=== PATIENT | female | born 1960 | race Two or more races ===

== ENCOUNTER → 2021-11-10 | Outpatient (CLI) | payer MEDICAID ==
[2021-11-10] VITALS (7 sets, daily range): BP systolic 98–126; BP diastolic 54–67
[~2021-11-10] VITALS: Ht 162.6 cm; Wt 65.8 kg
[~2021-11-10] MED LIST: REGENERON 1200mg/250ml NS 250 ML IV ONE
== END | disposition home or self-care (01) ==
LOC: ER 13:12
PROVIDERS: ATTEND Internal Medicine
DX: U07.1 COVID-19 (principal); E11.9 Type 2 diabetes mellitus without complications; I10 Essential (primary) hypertension; R05.9 Cough, unspecified; R53.83 Other fatigue; R51.9 Headache, unspecified
CPT/HCPCS: J7050; M0243; Q0244

== ENCOUNTER 2025-06-05 13:19 | Inpatient (IN) | payer OTHER ==
[~2025-06-05] VITALS: Ht 157.5 cm; Wt 67.9 kg
--- NOTE | 2025-06-05 13:31 | ED.PDOC ---
HPI Comments This is a 65 year old female JIMMY presenting to the ED with chief complaint of chest pain. Patient reports that she started to feel dizzy earlier yesterday, but soon developed associated left sided chest heaviness and left arm pain/numbness. Patient relays that she had similar chest pain 2 days ago. Patient notes she experience an episode of nausea/vomiting this morning. Patient denies any abdominal pain, SOB, fever, chills, or any further symptoms. Chief Complaint: Chest Pain Time Seen by MD: 13:29 Reviewed Notes: Nurses Notes, Slab Installer Notes, Medications, Allergies Allergies: Coded Allergies: Aspirin (Verified Allergy, Severe, 06/05/25) Sulfa Antibiotics (Verified Allergy, Unknown, 11/10/21) Information Source: Patient, Emergency Med Personnel Mode of Arrival: EMS Severity: Moderate Timing: Hours Duration: Since onset Prehospital treatment: None Location: Chest (L) Radiation: No Radiation Quality: Heavy Onset: At Rest Cardiac Risk Factors: Hyperlipidemia, HTN, Diabetes PE Risk Factors: None History of: Similar pain in past Past Medical History PAST MEDICAL HISTORY: Cancer, DM, High Lipids, HTN Surgical History (Other): Bilateral Mastectomy 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 Family History Family History: Reviewed,noncontributory to illness Social History Smoker: Non-Smoker Alcohol: Denies ETOH Use Drugs: Denies Drug Use Lives In: Home Constitutional: denies: chills, diaphoresis, fatigue, fever, malaise, sweats, weakness, others EENTM: denies: blurred vision, double vision, ear bleeding, ear discharge, ear drainage, ear pain, ear ringing, eye pain, eye redness, hearing loss, mouth pain, mouth swelling, nasal discharge, nose bleeding, nose congestion, nose pain, photophobia, tearing, throat pain, throat swelling, voice changes, others Respiratory: denies: cough, hemoptysis, orthopnea, SOB at rest, shortness of breath, SOB with excertion, stridor, wheezing, others Cardiovascular: reports: chest pain, left arm pain; denies: dizzy spells, diaphoresis, Dyspnea on exertion, edema, irregular heart beat, lightheadedness, palpitations, PND, syncope, others Gastrointestinal: reports: nausea, vomiting; denies: abdomen distended, abdominal pain, blood streaked bowels, constipated, diarrhea, dysphagia, difficulty swallowing, hematemesis, melena, poor appetite, poor fluid intake, rectal bleeding, rectal pain, others Genitourinary: denies: abnormal vagina bleeding, burning, dyspareunia, dysuria, flank pain, frequency, hematuria, incontinence, pain, , vagina discharge, urgency, others Neurological: reports: dizziness; denies: fainting, headache, left sided numbness, left sided weakness, numbness, paresthesia, pre-existing deficit, right sided numbness, right sided weakness, seizure, speech problems, tingling, tremors, weakness, others Musculoskeletal: denies: back pain, gout, joint pain, joint swelling, muscle pain, muscle stiffness, neck pain, others Integumetry: denies: bruises, change in color, change in hair/nails, dryness, laceration, lesions, lumps, rash, wounds, others Allergic/Immunocompromised: denies: Difficulty Healing, Frequent Infections, Hives, Itching, others Hematologic/Lymphatic: denies: anemia, blood clots, easy bleeding, easy bruising, swollen glands, others Endocrine: denies: excessive hunger, excessive sweating, excessive thirst, excessive urination, flushing, intolerance to cold, intolerance to heat, unexplained weight gain, unexplained weight loss, others Psychiatric: denies: anxiety, bipolar disorder, depression, hopeless, panic disorder, schizophrenia, sleepless, suicidal, others All Other Systems: Reviewed and Negative Physical Exam General Appearance: No Apparent Distress, Normal HEENT: Normal ENT Inspection, Pharynx Normal, TMs Normal Neck: Full Range of Motion, Non-Tender, Normal, Normal Inspection Respiratory: Chest Non-Tender, Lungs Clear, No Accessory Muscle Use, No Respiratory Distress, Normal Breath Sounds Cardiovascular: No Edema, No JVD, No Murmur, No Gallop, Normal Peripheral Pulses, Tachycardia Breast Exam: Deferred Gastrointestinal: No Organomegaly, Non Tender, No Pulsatile Mass, Normal Bowel Sounds, Soft Genitalia: Deferred Pelvic: Deferred Rectal: Deferred Extremities: No calf tenderness, Normal capillary refill, Normal inspection, Normal range of motion, Non-tender, No pedal edema Musculoskeletal : Apperance: Normal Neurologic: Alert, shoeblack II-XII nml as Tested, No Motor Deficits, Normal Affect, Normal Mood, No Sensory Deficits Cerebellar Function: Normal Reflexes: Normal Skin: Dry, Normal Color, Warm Lymphatic: No Adenopathy EKG EKG : Pulse Rate (adult): 91 [place]: Normal Cardiac Rhythm: NSR Block: None Hypertrophy: None ST: Nonsp Was a procedure done? Was a procedure done?: No CP Differential Dx Differential Diagnosis: N/A Differential Diagnosis: N/A Differential Diagnosis: Angina, Aortic dissection, Chest Wall Pain, Cholelithiasis, Costochondritis, Esophageal reflux/spasm, Gastritis, Myocardial Infarction, Pericarditis, Pneumonia, Pneumothorax, Pulmonary Embolus X-Ray, Labs, Meds, VS Vital Signs Date Time Temp Pulse Resp B/P (MAP) Pulse Ox O2 Delivery O2 Flow Rate FiO2 06/05/25 14:24 80 06/05/25 14:00 99.0 90 16 150/76 (100) 98 99.0 06/05/25 13:50 90 06/05/25 13:40 91 06/05/25 13:36 98.4 95 16 150/78 (102) 97 98.4 06/05/25 13:35 99.0 89 16 137/76 (96) 98 99.0 06/05/25 13:35 Room Air* 0 21 06/05/25 13:24 91 Lab Test 06/05/25 14:45 Range/Units White Blood Count 5.4 4.4-10.8 10^3/uL Red Blood Count 4.92 4.0-5.20 10^6/uL Hemoglobin 15.2 12.2-16.2 g/dL Hematocrit 44.6 36.0-46.0 % Mean Corpuscular Volume 90.8 80.0-100.0 fL Mean Corpuscular Hemoglobin 30.9 28.0-32.0 pg Mean Corpuscular Hemoglobin Concent 34.1 32.0-36.0 g/dL Red Cell Distribution Width 13.4 11.8-14.3 % Platelet Count 179 140-450 10^3/uL Mean Platelet Volume 8.6 6.9-10.8 fL Neutrophils (%) (Auto) 68.9 37.0-80.0 % Lymphocytes (%) (Auto) 24.9 10.0-50.0 % Monocytes (%) (Auto) 5.5 0.0-12.0 % Eosinophils (%) (Auto) 0.4 0.0-7.0 % Basophils (%) (Auto) 0.3 0.0-2.0 % Neutrophils # (Auto) 3.7 1.6-8.6 10 ^3/uL Lymphocytes # (Auto) 1.3 0.4-5.4 10 ^3/uL Monocytes # (Auto) 0.3 0-1.3 10 ^3/uL Eosinophils # (Auto) 0 0-0.8 10 ^3/uL Basophils # (Auto) 0 0-0.2 10 ^3/uL Nucleated Red Blood Cells 0.1 % Sodium Level 141 136-145 mmol/L Potassium Level 3.7 3.5-5.1 mmol/L Chloride Level 105 98-107 mmol/L Carbon Dioxide Level 24 20-31 mmol/L Anion Gap 12 5-15 Blood Urea Nitrogen 12 9-23 mg/dL Creatinine 0.71 0.550-1.02 mg/dL Glomerular Filtration Rate Calc 93 >90 mL/min BUN/Creatinine Ratio 16.9 10.0-20.0 Serum Glucose 111 H 74-106 mg/dL Calcium Level 11.6 H 8.7-10.4 mg/dL Troponin I High Sensitivity 5 </=34 ng/L Time of 1ST Reevaluation: 14:27 Reevaluation 1ST: Unchanged Time of 2ND Reevaluation: 15:24 Reevaluation 2ND: Improved Patient Education/Counseling: Diagnosis, Treatment, Prognosis, Need For Follow Up Family Education/Counseling: No Family Present Comments pt's symptoms were concerning for angina. she owens HEART score of 7, no PE risk factors, no pneumonia, lung mass,ptx. she will be admitted for further workups and treatments Additional Information Reviewed patient's previous visit(s): None The following tests were ordered, and results were reviewed by me: CBC, BMP, Troponin, EKG, Chest XR Additional information was gathered from interviewing the following independent historian: EMS I reviewed and agreed with the following test results read by other provider: Chest XR I discussed treatments and results with medical personnel and: Patient Comprehensive systems review obtained and negative except for what is stated in the HPI. SEPSIS Sepsis Screen Physician Orders Electrocardigram (06/05/25 13:40) Electrocardigram (06/05/25 14:40) Electrocardigram (06/05/25 16:40) Chest Portable (06/05/25 14:31) Troponin-I Hs (06/05/25 15:31) Troponin-I Hs (06/05/25 17:31) Vital Signs Date Time Temp Pulse Resp B/P (MAP) Pulse Ox O2 Delivery O2 Flow Rate FiO2 06/05/25 14:24 80 06/05/25 14:00 99.0 90 16 150/76 (100) 98 99.0 06/05/25 13:50 90 06/05/25 13:40 91 06/05/25 13:36 98.4 95 16 150/78 (102) 97 98.4 06/05/25 13:35 99.0 89 16 137/76 (96) 98 99.0 06/05/25 13:35 Room Air* 0 21 06/05/25 13:24 91 Laboratory Tests Test 06/05/25 14:45 White Blood Count 5.4 10^3/uL (4.4-10.8) Departure 1 Departure Time of Disposition: 15:26 Impression: Primary Impression: Unstable angina Disposition: ADMITTED INPATIENT Admit to: [facility] Condition: Serious Discharged With: Self Critical Care Note Critical Care Time?: Yes (45 min-critical care time only) Critical care comment: Due to concerns for patients condition deteriorating, the care required my highest level of attention and readiness to intervene. I assessed the patient, reviewed the medical records, ordered the appropriate tests and treatments, then reassessed for results and responsiveness. I communicated with medical personnel and consultants and formulated a plan of care. Total critical care time excludes any procedures Stability Stability form required: No Heart Score Heart Score: Heart Score Response (Comments) Value History Highly Suspicious 2 EKG Repolarization Disturb 1 Age >65 2 Risk Factors >3 or Hx ASHD 2 Troponin Normal limit 0 Total 7 I personally scribed for SHERRIE EDGAR MD ([email or web address]) on 06/05/25 at 13:31. Elec tronically submitted by Jack Cardoza ([email or web address]). I personally scribed for SHERRIE EDGAR MD ([email or web address]) on 06/05/25 at 13:40. Electr onically submitted by Jack Cardoza ([email or web address]). SHERRIE EDGAR MD Jun 05, 2025 13:31
[2025-06-05 14:56] LABS: Hematocrit 44.6 % (36.0-46.0); Hemoglobin 15.2 g/dL (12.2-16.2); Mean Corpuscular Hemoglobin 30.9 pg (28.0-32.0); Mean Corpuscular Volume 90.8 fL (80.0-100.0); Nucleated Red Blood Cells % 0.1 %
[2025-06-05 15:08] LABS: Chloride 105 mmol/L (98-107); Potassium 3.7 mmol/L (3.5-5.1); Sodium 141 mmol/L (136-145)
[2025-06-05 15:09] LABS: Anion Gap 12 (5-15); Carbon Dioxide 24 mmol/L (20-31)
--- NOTE | 2025-06-05 15:09 | DVH ---
CHEST RADIOGRAPH Indication: cp Technique: Single frontal view of the chest was obtained COMPARISON: None FINDINGS: Lines and Tubes: None Lungs: Clear Pleura: No effusion. No pneumothorax. Cardiomediastinal contours: Unremarkable Bones: Unremarkable IMPRESSION: 1. No acute disease.
[2025-06-05 15:10] LABS: Calcium 11.6 mg/dL (8.7-10.4)
[2025-06-05 15:14] LABS: BUN/Creatinine Ratio 16.9 (10.0-20.0); Blood Urea Nitrogen 12 mg/dL (9-23)
[2025-06-05 15:18] LABS: Glucose 111 mg/dL (74-106)
[2025-06-05] MEDS ORDERED: NITROGLYCERIN 0.4 MG SL TAB SL PRN (17:30)
[2025-06-05] MEDS ORDERED: ONDANSETRON HCL 4 MG/2 ML VIAL IV PRN (17:30)
[2025-06-05] MEDS ORDERED: DOCUSATE SOD 100 MG CAP PO PRN (17:30)
[2025-06-05] MEDS ORDERED: MORPHINE SULFATE INJ 2 MG/ml SYRG IV PRN ×2 (17:30)
--- NOTE | 2025-06-05 18:54 | ECG ---
[facility] Test Date: 2025-06-05 Test Time: 13:24:02 Pat Name: RENEE RANDOLPH Department: ED Room: 0240T Gender: F Sales And Service Consultant: breanna : 1960 Requested By: SHERRIE EDGAR Order Number: [id number] Reading MD: Measurements Intervals [place] Rate: 91 P: 40 TX: 149 QRS: -41 QRSD: 119 T: 11 QT: 374 QTc: 461 Interpretive Statements Sinus rhythm Incomplete RBBB and LAFB Low voltage, precordial leads ST elevation, consider inferior injury Please click the below link to view image of tracing.
[2025-06-05 18:56] VITALS: BP 111/68; PULSE 82; RESP 17; TEMP 98.8; O2SAT 96
[2025-06-05 20:00] VITALS: PULSE 78; PULSE 80; RESP 18; O2SAT 96
[2025-06-05] MEDS ORDERED: hydrALAZINE HCL 20 MG/ML VL IV PRN (20:15)
[2025-06-05 21:00] VITALS: BP 118/74; PULSE 78; RESP 18; TEMP 99.4; O2SAT 96
[2025-06-05] MEDS: SODIUM CHLORIDE 0.9% 1,000 ML IV SCH (21:09)
[2025-06-05] MEDS ORDERED: ATOR10TA52 PO (21:18)
[2025-06-05] MEDS ORDERED: ENAL1TAB47 PO (21:18)
[2025-06-05] MEDS ORDERED: METF-370 PO (21:18)
[2025-06-05] MEDS: ACETAMINOPHEN 325 MG TAB PO PRN (23:19)
[2025-06-06] VITALS (9 sets, daily range): BP systolic 113–148; BP diastolic 70–81; PULSE 64–80; RESP 17–77; TEMP 98.2–98.6; O2SAT 96–99
[2025-06-06] MEDS ORDERED: DEXTROSE (50%) 50ML SYRG IV PRN (01:00)
--- NOTE | 2025-06-06 01:06 | DVHHP2 ---
MIN LEMA MENTAL HYGIENIST 06/06/25 0106: History of Present Illness Reason for Visit: Chest pain / dizziness History of Present Illness 65-year-old female with past medical history of hypertension, hyperlipidemia, DM presents with complaints of intermittent chest pressure over the previous week. On missing occurrence patient also endorses dizziness and radiating numbness to the left arm. Patient did not report any aggravating factors. During the emergency department evaluation CBC is unremarkable CMP is unremarkable, troponin flat trending . CXR no acute cardiopulmonary disease. At this time patient denies fevers, chills, shortness of breath, palpitations, nausea, vomiting, leg edema. Cardiovascular: HTN, hyperipidemia Endocrine: Diabetes Smoke: No ALCOHOL: none Drugs: None Lives: with Family Review of Systems Constitutional: No: Fever, Chills, Sweats, Weakness, Malaise, Other Eyes: No: Pain, Vision change, Conjunctivae inflammation, Eyelid inflammation, Other, Redness ENT: No: Ear pain, Ear discharge, Nose pain, Nose discharge, Nose congestion, Mouth pain, Mouth swelling, Throat pain, Throat swelling, Other Respiratory: No: Cough, Dry, Shortness of breath, SOB with excertion, Wheezing, Hemoptysis, Pleuritic Pain, Sputum, Wheezing, Other Cardiovascular: Chest Pain, Lt Headedness; No: Palpitations, Orthopnea, Paroxysmal Noc. Dyspnea, Edema, Other Gastrointestinal: No: Nausea, Vomiting, Abdominal Pain, Diarrhea, Constipation, Melena, Hematochezia, Other Genitourinary: No Dysuria, No Frequency, No Incontinence, No Hematuria, No Retention, No Other Musculoskeletal: No: other, neck pain, shoulder pain, arm pain, back pain, hand pain, leg pain, foot pain Skin: No: Rash, Lesions, Jaundice, Bruising, Other Neurological: No: Weakness, Numbness, Incoordination, Change in speech, Confusion, Seizures, Other Allergies: Coded Allergies: Sulfa Antibiotics (Verified Allergy, Unknown, 11/10/21) Medications Current Medications Medications Dose Ordered Sig/Jose Francisco Route Start Time Stop Time Status Last Admin Dose Admin Sodium Chloride 1,000 ml @ 60 mls/hr [id number] IV 06/05/25 17:30 06/05/25 21:09 60 MLS/HR Acetaminophen/ Hydrocodone Bitart 1 tab Q4HP PRN PO 06/05/25 17:30 Ondansetron HCl 4 mg Q4HP PRN IV 06/05/25 17:30 Docusate Sodium 100 mg BIDPRN PRN PO 06/05/25 17:30 Enoxaparin Sodium 40 mg DAILY SC 06/06/25 10:00 Acetaminophen 650 mg Q6HP PRN PO 06/05/25 17:30 06/05/25 23:19 650 MG Morphine Sulfate 2 mg Q4HPRN PRN IV 06/05/25 17:30 Nitroglycerin 0.4 mg Q5MINP PRN SL 06/05/25 17:30 Morphine Sulfate 2 mg Q30M PRN IV 06/05/25 17:30 Hydralazine HCl 10 mg Q6HP PRN IV 06/05/25 20:15 Exam Vital Signs Vital Signs Date Time Temp Pulse Resp B/P (MAP) Pulse Ox O2 Delivery O2 Flow Rate FiO2 06/05/25 21:00 99.4 78 18 118/74 (89) 96 99.4 06/05/25 20:00 Room Air* 0 21 General Appearance: Alert, Oriented X3, Cooperative, No acute distress HEENT: Atraumatic, PERRLA, EOMI Respiratory: Clear to auscultation, Normal air movement Cardiovascular: Regular rate, Normal S1, Normal S2 Abdominal: Normal bowel sounds, Soft, No tenderness Extremities: No clubbing, No edema Skin: No rashes, No breakdown Neuro: Normal speech, Strength at 5/5 X4 ext Psych/Mental Status: Mental status NL, Mood NL Labs/Xrays Labs Test 06/05/25 17:34 06/05/25 16:37 06/05/25 14:45 Range/Units Troponin I High Sensitivity 5 </=34 ng/L POC Glucose 133 H 70-106 mg/dl White Blood Count 5.4 4.4-10.8 10^3/uL Red Blood Count 4.92 4.0-5.20 10^6/uL Hemoglobin 15.2 12.2-16.2 g/dL Hematocrit 44.6 36.0-46.0 % Mean Corpuscular Volume 90.8 80.0-100.0 fL Mean Corpuscular Hemoglobin 30.9 28.0-32.0 pg Mean Corpuscular Hemoglobin Concent 34.1 32.0-36.0 g/dL Red Cell Distribution Width 13.4 11.8-14.3 % Platelet Count 179 140-450 10^3/uL Mean Platelet Volume 8.6 6.9-10.8 fL Neutrophils (%) (Auto) 68.9 37.0-80.0 % Lymphocytes (%) (Auto) 24.9 10.0-50.0 % Monocytes (%) (Auto) 5.5 0.0-12.0 % Eosinophils (%) (Auto) 0.4 0.0-7.0 % Basophils (%) (Auto) 0.3 0.0-2.0 % Neutrophils # (Auto) 3.7 1.6-8.6 10 ^3/uL Lymphocytes # (Auto) 1.3 0.4-5.4 10 ^3/uL Monocytes # (Auto) 0.3 0-1.3 10 ^3/uL Eosinophils # (Auto) 0 0-0.8 10 ^3/uL Basophils # (Auto) 0 0-0.2 10 ^3/uL Nucleated Red Blood Cells 0.1 % Sodium Level 141 136-145 mmol/L Potassium Level 3.7 3.5-5.1 mmol/L Chloride Level 105 98-107 mmol/L Carbon Dioxide Level 24 20-31 mmol/L Anion Gap 12 5-15 Blood Urea Nitrogen 12 9-23 mg/dL Creatinine 0.71 0.550-1.02 mg/dL Glomerular Filtration Rate Calc 93 >90 mL/min BUN/Creatinine Ratio 16.9 10.0-20.0 Serum Glucose 111 H 74-106 mg/dL Calcium Level 11.6 H 8.7-10.4 mg/dL Assessment/Plan Assessment/Plan Chest pain Dizziness Uncontrolled hypertension DM Plan Admit telemetry Consult Cardiology. Echocardiogram. Continue home medications. As needed antihypertensives for optimal BP management. Monitor electrolytes. IVF Blood glucose checks with regular insulin sliding scale coverage for optimal glycemic management Physical therapy evaluation DVT PPX Lovenox Plan discussed with: Patient My Orders Orders - MIN LEMA NP Procedure Category Date Status Time Hydralazine Injection PHA 06/05/25 In Process (Apresoline Inject 20:15 Date of Service: Jun 06, 2025 Billing Provider: VANE CÁRDENAS MD Common Visit Codes: NOT BILLABLE VANE CÁRDENAS MD 06/06/25 1704: Review of Systems Allergies: Coded Allergies: Sulfa Antibiotics (Verified Allergy, Unknown, 11/10/21) Additional Comments Additional Comments Additional Comments 65-year-old female with a known history of diabetes type 2, hypertension, dyslipidemia initially presented to hospital with chest pain and headache found to have 1. Chest pain rule out acute NH 2. Diabetes mellitus type 2 3. Hypertension 4. Dyslipidemia -2D echo, cardiology consultation, patient is currently scheduled for Cardiolite stress test in the morning. MIN LEMA NP Jun 06, 2025 01:06 VANE CÁRDENAS MD Jun 06, 2025 17:04
[2025-06-06] MEDS: ACCU-CHEK COMFORT CURVE STRIP VI SCH (06:29)
[2025-06-06] MEDS: InsuLIN REG 1unit/0.01ml Soln (100units/ml) SC SCH (06:29)
--- NOTE | 2025-06-06 09:47 | DVHINCON2 ---
Date Seen: Jun 06, 2025 Referring Physician MD Arash Reason for Consultation Stable angina History of Present Illness This is a 65-year-old female patient who presents to the emergency room with chief complaint of chest pain and dizziness. The patient states that she has been experiencing intermittent chest pain for the last five months. She reports dizziness on the day of emergency room arrival, which prompted her to come to the emergency room. The patient describes the chest pain as unprovoked, intermittent, sharp in nature, left-sided and nonradiating. Associated symptoms include shortness of breath. She also complains of headache and dizziness. Initial twelve lead electrocardiogram reveals normal sinus rhythm with incomplete right bundle branch block. Serial troponin levels have been negative. Significant past medical history includes hypertension, dyslipidemia, type 2 diabetes mellitus, and breast cancer status post bilateral mastectomy. The patient reports seeing a volleyball referee for a preop evaluation prior to mastectomy and breast augmentation approximately five years ago. She is unsure of what kind of workup was done at that time. Past Medical History Past medical history reviewed. No other significant than mentioned above. Past Surgical History Bilateral breast augmentation Family History: Patient reports no known family medical history. Family History Family history reviewed. Social History Denies the use of tobacco, alcohol or illicit drugs. Allergies: Coded Allergies: Sulfa Antibiotics (Verified Allergy, Unknown, 11/10/21) Home Meds Reported Medications Atorvastatin Calcium (ATORVASTATIN CALCIUM) 10 Mg Tab, 1 TAB PO DAILY 06/05/25 Enalapril Maleate (Enalapril Maleate) 10 Mg Tab, 1 TAB PO DAILY 06/05/25 Metformin Hydrochloride (Metformin Hcl) 500 Mg Tab, 1 TAB PO BID 06/05/25 Home Meds Home medications reviewed. Current Medications Current Medications Medications (Trade) Dose Ordered Sig/Jose Francisco Route PRN Reason Start Time Stop Time Status Last Admin Sodium Chloride 1,000 ml @ 60 mls/hr [id number] IV 06/05/25 17:30 06/05/25 21:09 Acetaminophen/ Hydrocodone Bitart (Felicity 5/325MG Tab) 1 tab Q4HP PRN PO MODERATE PAIN (4-6 PAIN SCALE) 06/05/25 17:30 Ondansetron HCl (Zofran) 4 mg Q4HP PRN IV NAUSEA / VOMITING 06/05/25 17:30 Docusate Sodium (Colace Capsule) 100 mg BIDPRN PRN PO FOR CONSTIPATION 06/05/25 17:30 Enoxaparin Sodium (Lovenox) 40 mg DAILY SC 06/06/25 10:00 Acetaminophen (Tylenol Tablet) 650 mg Q6HP PRN PO PAIN SCALE 1-3 OR TEMP>100.4 06/05/25 17:30 06/06/25 09:01 Morphine Sulfate 2 mg Q4HPRN PRN IV SEVERE PAIN (7-10 PAIN SCALE) 06/05/25 17:30 Nitroglycerin (Ntrostat Sublingual) 0.4 mg Q5MINP PRN SL FOR CHEST PAIN 06/05/25 17:30 Morphine Sulfate 2 mg Q30M PRN IV FOR CHEST PAIN 06/05/25 17:30 Hydralazine HCl (Apresoline Injection) 10 mg Q6HP PRN IV SBP>160 06/05/25 20:15 Diagnostic Test (Pha) (Accu-Chek Comfort Curve T) 1 strip ACHS 06/06/25 07:00 06/06/25 06:29 Insulin Human Regular (InsuLIN R) ACHS SC 06/06/25 07:00 Dextrose 50 ml UD PRN IV Blood Sugar LESS THAN 60 06/06/25 01:00 Review of Systems Constitutional: No symptom reported Ears, Nose, & Throat: No symptom reported Eyes: No symptom reported Neurological: Dizziness, headache Pulmonary/Respiratory: Shortness of breath Cardiovascular: Chest pain Gastrointestinal: No symptom reported Genitourinary: No symptom reported Musculoskeletal: No symptom reported Skin: No symptom reported Psychiatric: No symptom reported Endocrine: No symptom reported Hematologic/Lymphatic: No symptom reported Vital Signs Vital Signs Date Time Temp Pulse Resp B/P (MAP) Pulse Ox O2 Delivery O2 Flow Rate FiO2 06/06/25 08:43 98.2 68 17 136/76 (96) 98 98.2 06/05/25 20:00 Room Air* 0 21 Physical Exam General Appearance: Cooperative. Well-developed. Well-nourished. No acute distress. Pulmonary/Respiratory: Clear, bilateral breaths sounds. Cardiovascular/Chest: Regular rate and rhythm. Peripheral Pulses: 2+ Radial (R). 2+ Radial (L). 2+ Pedal (R). 2+ Pedal (L) Abdominal Exam: Normal bowel sounds. Ankle Exam: Negative ankle edema Lower extremities: Negative lower extremity edema Neuro/Mental Status: A/OX4, coherent. Thoughts/Psych: Normal thought pattern. Appropriate mood and affect. Good judgment and insight. Appearance: No acute distress. Skin Exam: Normal inspection. Normal color. Warm and dry. Labs/Diagnostic Data Labs Test 06/06/25 05:59 06/05/25 17:34 06/05/25 14:45 Range/Units POC Glucose 129 H 70-106 mg/dl Troponin I High Sensitivity 5 </=34 ng/L White Blood Count 5.4 4.4-10.8 10^3/uL Red Blood Count 4.92 4.0-5.20 10^6/uL Hemoglobin 15.2 12.2-16.2 g/dL Hematocrit 44.6 36.0-46.0 % Mean Corpuscular Volume 90.8 80.0-100.0 fL Mean Corpuscular Hemoglobin 30.9 28.0-32.0 pg Mean Corpuscular Hemoglobin Concent 34.1 32.0-36.0 g/dL Red Cell Distribution Width 13.4 11.8-14.3 % Platelet Count 179 140-450 10^3/uL Mean Platelet Volume 8.6 6.9-10.8 fL Neutrophils (%) (Auto) 68.9 37.0-80.0 % Lymphocytes (%) (Auto) 24.9 10.0-50.0 % Monocytes (%) (Auto) 5.5 0.0-12.0 % Eosinophils (%) (Auto) 0.4 0.0-7.0 % Basophils (%) (Auto) 0.3 0.0-2.0 % Neutrophils # (Auto) 3.7 1.6-8.6 10 ^3/uL Lymphocytes # (Auto) 1.3 0.4-5.4 10 ^3/uL Monocytes # (Auto) 0.3 0-1.3 10 ^3/uL Eosinophils # (Auto) 0 0-0.8 10 ^3/uL Basophils # (Auto) 0 0-0.2 10 ^3/uL Nucleated Red Blood Cells 0.1 % Sodium Level 141 136-145 mmol/L Potassium Level 3.7 3.5-5.1 mmol/L Chloride Level 105 98-107 mmol/L Carbon Dioxide Level 24 20-31 mmol/L Anion Gap 12 5-15 Blood Urea Nitrogen 12 9-23 mg/dL Creatinine 0.71 0.550-1.02 mg/dL Glomerular Filtration Rate Calc 93 >90 mL/min BUN/Creatinine Ratio 16.9 10.0-20.0 Serum Glucose 111 H 74-106 mg/dL Calcium Level 11.6 H 8.7-10.4 mg/dL Assessment Chest pain, rule out coronary ischemia Rule out structural heart disease Hypertension Dyslipidemia History breast cancer status post bilateral mastectomy Plan/Recommendation We will continue with the following plan/recommendations (Dr. Brenner): * Transthoracic echocardiogram to evaluate cardiac function * Chest pain protocol * HEART score: 5 points (moderate score) * Single antiplatelet therapy lipid-lowering agent * Blood pressure control * Close Cardiac surveillance * Nuclear stress test Patient seen and examined at bedside with Dr. Brenner. Thank you for allowing us to care for this patient. Please call with any questions or concerns. Critical care time spent: 44 minutes This medical document was created using an electronic medical record system with voice recognition software and computerized dictation system. Although this document has been carefully reviewed, there might still be some phonetic and typographical errors. Occasional wrong-word or ``sound-alike substitutions may have occurred due to the inherent limitations of voice recognition software. These areas are purely typographical due to imperfections of the software programs and do not reflect any compromise in the patient's medical care. Please read the chart carefully and recognize, using context, where these substitutions have occurred. Plan discussed with: Patient NYHA Physical activity limitations: NA Date of Service: Jun 06, 2025 Billing Provider: JESUS ALBERTO MANUEL Cardiology Common Codes: 90163-DXMRQPY INP/OBS CARE (High) Cardiology Consultation Codes: 54356-[id number] CONSULT <45MIN JESUS ALBERTO MANUEL Jun 06, 2025 09:47
[2025-06-06] MEDS: ENOXAPARIN SOD 40 MG/0.4 ML SYRINGE SC SCH (10:17)
[2025-06-06] MEDS: LISINOPRIL 5 MG TAB PO SCH (10:34)
[2025-06-06 10:58] LABS: Magnesium 1.9 mg/dL (1.6-2.6); Triglycerides 102.0 mg/dL (< 150)
[2025-06-06 11:00] LABS: Cholesterol 129.0 mg/dL (< 200)
[2025-06-06 11:03] LABS: HDL Cholesterol 35.0 mg/dL (40-59)
--- NOTE | 2025-06-06 16:04 | DVHSR ---
APPROVED REPORT EXAM: LIMITED Two-dimensional and M-mode echocardiogram with Doppler and color Doppler. Blood Pressure: 136/76 mmHg INDICATION Chest Pain R/O OH RISK FACTORS Height: 5' 2", Weight: 149 DIMENSIONS LVDd4.0 (3.8-5.7cm)LA (2D)3.4 (1.9-4.0cm)Aortic Root2.7 (2.0-3.7cm) LVDs2.2 (2.5-4.0cm)LA (MM) (1.9-4.0cm)Aortic Cusp Exc1.8 (1.5-2.0cm) EF (%) 75.0 (55-70%)Rt. Atrium4.0 (1.9-4.0cm)Asc. Aorta cm IVSd1.1 (0.7-1.1cm)RV (D) (1.8-2.4cm) PWd1.0 (0.7-1.1cm) Mitral Valve MitralMitral Stenosis E wave0.90m/sMV Mean GR.mmHg A wave0.80m/sMV Peak GR.mmHg E/A ratio1.12D MVAcm2 Aortic Valve Aortic ValveAortic Stenosis V11.20m/Osman Mean GR.4mmHg V21.30m/Osman Peak GR.6mmHg LVOT Diameter2.1 (1.8-2.4cm)Doppler AVA3.20cm2 Pulmonic Valve V20.80m/s Other Information Quality : Technically LimitedRhythm : Technically limited study due to body habitus, patient with double mastectomy and implants. Conclusion lvef 75% mild LVH normal rv function no severe valve abnormalities noted
[2025-06-06] MEDS: ATORVASTATIN 20 MG TAB PO SCH (21:22)
[2025-06-07] VITALS (10 sets, daily range): BP systolic 126–155; BP diastolic 58–84; PULSE 63–100; RESP 16–20; TEMP 97.9–100.1; O2SAT 95–98
[2025-06-07] MEDS: REGADENOSON 0.4 MG/5 ML SYRG IV ONE ×2 (12:55→13:05)
--- NOTE | 2025-06-07 16:24 | DVHDS2 ---
Discharge Summary Date of Admission Jun 05, 2025 at 17:18 Date of Discharge: Jun 07, 2025 Labs/Diagnostic Data: Laboratory Results Test 06/07/25 11:28 06/06/25 10:35 06/06/25 10:32 06/05/25 17:34 POC Glucose 123 mg/dl (70-106) Hemoglobin A1c 6.0 % A1C (<5.7) Magnesium Level 1.9 mg/dL (1.6-2.6) Triglycerides Level 102 mg/dL (< 150) Cholesterol Level 129 mg/dL (< 200) LDL Cholesterol 78 mg/dL (< 100) HDL Cholesterol 35 mg/dL (40-59) Thyroid Stimulating Hormone (TSH) 1.09 uIU/mL (0.55-4.78) Troponin I High Sensitivity 5 ng/L (</=34) Test 06/05/25 14:45 White Blood Count 5.4 10^3/uL (4.4-10.8) Red Blood Count 4.92 10^6/uL (4.0-5.20) Hemoglobin 15.2 g/dL (12.2-16.2) Hematocrit 44.6 % (36.0-46.0) Mean Corpuscular Volume 90.8 fL (80.0-100.0) Mean Corpuscular Hemoglobin 30.9 pg (28.0-32.0) Mean Corpuscular Hemoglobin Concent 34.1 g/dL (32.0-36.0) Red Cell Distribution Width 13.4 % (11.8-14.3) Platelet Count 179 10^3/uL (140-450) Mean Platelet Volume 8.6 fL (6.9-10.8) Neutrophils (%) (Auto) 68.9 % (37.0-80.0) Lymphocytes (%) (Auto) 24.9 % (10.0-50.0) Monocytes (%) (Auto) 5.5 % (0.0-12.0) Eosinophils (%) (Auto) 0.4 % (0.0-7.0) Basophils (%) (Auto) 0.3 % (0.0-2.0) Neutrophils # (Auto) 3.7 10 ^3/uL (1.6-8.6) Lymphocytes # (Auto) 1.3 10 ^3/uL (0.4-5.4) Monocytes # (Auto) 0.3 10 ^3/uL (0-1.3) Eosinophils # (Auto) 0 10 ^3/uL (0-0.8) Basophils # (Auto) 0 10 ^3/uL (0-0.2) Nucleated Red Blood Cells 0.1 % Sodium Level 141 mmol/L (136-145) Potassium Level 3.7 mmol/L (3.5-5.1) Chloride Level 105 mmol/L (98-107) Carbon Dioxide Level 24 mmol/L (20-31) Anion Gap 12 (5-15) Blood Urea Nitrogen 12 mg/dL (9-23) Creatinine 0.71 mg/dL (0.550-1.02) Glomerular Filtration Rate Calc 93 mL/min (>90) BUN/Creatinine Ratio 16.9 (10.0-20.0) Serum Glucose 111 mg/dL (74-106) Calcium Level 11.6 mg/dL (8.7-10.4) Other Laboratory Tests 06/05/25 14:45 Brief Hx & Hospital Course: 65-year-old female with a known history of diabetes type 2, hypertension, dyslipidemia initially presented to hospital with chest pain and headache , eventually admitted to rule out acute MO. Patient underwent Cardiolite stress test which was negative for ischemia patient's daughter requested to CT head noncontrast as patient had a fall in the past not lately. CT head was done which shows left frontal bleed which was 2.1 cm. Current side neurology was consulted who recommended Neurosurgery evaluation at higher level of care as [facility] does not have any neurosurgery department. This was discussed in detail with the patient and patient's daughter at bedside who agree to the current plan of care. In the meantime MRI brain with and without contrast was done which shows evidence of cavernous malformation with the internal bleed most likely but less likely intraparenchymal hemorrhage with underlying mass. This these findings were explained with the patient and patient's daughter in detail in the presence of nurse Huff. [facility] has accepted the patient patient's daughter was requesting [facility] currently be prefer to transfer to [facility] only facility has a bed for now. Patient's daughter and patient agrees to current plan of care. No aspirin or any anticoagulation for now. Condition at Discharge: Higher Level of Care Final Diagnosis/Problems List 65-year-old female with a known history of diabetes type 2, hypertension, dyslipidemia initially presented to hospital with chest pain and headache found to have 1. Chest pain rule out acute MO 2. Diabetes mellitus type 2 3. Hypertension 4. Dyslipidemia Discharge Disposition: Acute Care Facility SNF Discharge Will this Physician continue t: No Discharge Instruct/Medications Diet: Cardiac 2g Na,low cholest Diet comment: 1800 ADA diet. Activity: No Restrictions, As Tolerated Follow Up/Referral: Plan with the PCP in 1-2 weeks Follow up with Neurology in 1-2 weeks per chronic dizziness as an outpatient. Medications: Resume home medications. Scheduled Atorvastatin Calcium (Atorvastatin Calcium), 1 TAB PO DAILY, (Reported) Enalapril Maleate (Enalapril Maleate), 1 TAB PO DAILY, (Reported) Metformin Hydrochloride (Metformin Hcl), 1 TAB PO BID, (Reported) Discharge Statement: "Patient was advised to return to the ER or call 911 if any headaches, dizziness, shortness of breath, chest pain, abdominal pain, bleeding, fevers, or worsening of medical condition. Patient was counseled about treatment plan, medications, possible side effects, patientverbalized understanding. All questions were answered to the best of my ability. This discharge took greater then 30 minutes in planning, reviewing documentation, counseling the patient, and discussing with other team members." ASSESSMENT ASSESSMENT Assessment 65-year-old female with a known history of diabetes type 2, hypertension, dyslipidemia initially presented to hospital with chest pain and headache found to have 1. Chest pain rule out acute MO 2. Diabetes mellitus type 2 3. Hypertension 4. Dyslipidemia Date of Service: Jun 07, 2025 Billing Provider: VANE CÁRDENAS MD Common Visit Codes: NOT BILLABLE VANE CÁRDENAS MD Jun 07, 2025 16:24
--- NOTE | 2025-06-07 17:11 | DVH ---
CT HEAD WITHOUT CONTRAST Indication: dizziness, history of previous fall EXAM DATE: 06/07/2025 04:26 PM COMPARISON: None TECHNIQUE: CT of the head without intravenous contrast. RADIATION DOSE: CTDIvol: 51.4 mGy, DLP: 824 mGy*cm FINDINGS: There is left frontal hemorrhagic region/ lesion measuring 2.1 by 1.6 cm. The ventricles are midline and normal in size. No midline shift. Mild periventricular and subcortical white matter chronic microvascular ischemic changes. Mastoids well pneumatized. Paranasal sinuses w ell pneumatized. Orbits and retrobulbar spaces unremarkable. IMPRESSION: A 2.1 cm region of hemorrhage within the left frontal lobe which could represent a hemorrhagic mass v ersus intraparenchymal hemorrhage. Recommend MRI brain with and without contrast to further evaluate . Mild chronic microvascular ischemic changes. Critical findings discussed with Dr Antoine by Dr. Vann via phone on 06/07/2025 05:09 PM.
[2025-06-07] MEDS ORDERED: GADOTERATE MEG 7.5 MMOL/15ml INJ (0.5MMOL/ml) IV ONE (17:41)
--- NOTE | 2025-06-07 19:17 | DVH ---
EXAM: MRI BRAIN HEAD WO CONTRAST CLINICAL HISTORY: Left frontal lobe hemorrhage COMPARISON: None CONTRAST: Type of contrast: Contrast injected: Contrast wasted: 0 TECHNIQUE: Multiplanar, multisequence magnetic resonance imaging of the brain was performed after the administra tion of intravenous contrast. FINDINGS: 1.4 x 1.6 1.5 cm x T1 heterogeneously hyperintense with medial wall hypointensity lesion within the l eft frontal lobe which demonstrates T2 internal hyperintensity with peripheral irregular hypointensit y , blooming on the blood sensitive sequence and no significant enhancement on the postcontrast imagi ng. There is no associated perilesional edema. Mild diffuse brain atrophy. No significant chronic small-vessel ischemic changes. No midline shift, herniation or cytotoxic edema following large vascular territory. No intra-axial or extra-axial fluid collections. No evidence of hydrocephalus. The basal cisterns are patent. Vascula r flow voids are maintained. The pituitary gland, sella and parasellar regions unremarkable. The cerebellar tonsils are in normal position. The cerebellum is unremarkable. The orbits and globes unremarkable. Mild mucoperiosteal thickening of the ethmoid air cells. Otherwi se, the paranasal sinuses and mastoids are clear. There are No worrisome calvarial lesions. IMPRESSION: 1.4 x 1.6 x 1.5 cm heterogeneously hyperintense with medial wall hypointensity lesion within the left frontal lobe which demonstrates T2 internal hyperintensity with peripheral irregular hypointensity , blooming on the blood sensitive sequence and no significant enhancement on the postcontrast imaging. No significant perilesional edema. Finding may represent a large cavernous malformation with interna l hemorrhage. Intraparenchymal hemorrhage and mass are thought less likely.
[2025-06-08] VITALS (7 sets, daily range): BP systolic 125–148; BP diastolic 64–75; PULSE 74–86; RESP 16–18; TEMP 98.5–99.5; O2SAT 96–98
[2025-06-08] MEDS: HYDROcodone-ACET 5/325MG TAB PO PRN (10:21)
[2025-06-08 14:20] LABS: Hematocrit 40.2 % (36.0-46.0); Hemoglobin 13.8 g/dL (12.2-16.2); Mean Corpuscular Hemoglobin 31.5 pg (28.0-32.0); Mean Corpuscular Volume 91.6 fL (80.0-100.0); Nucleated Red Blood Cells % 0.0 %
[2025-06-08 14:27] LABS: Sodium 141 mmol/L (136-145)
[2025-06-08 14:28] LABS: Anion Gap 9 (5-15); Calcium 10.2 mg/dL (8.7-10.4); Carbon Dioxide 24 mmol/L (20-31)
[2025-06-08 14:33] LABS: BUN/Creatinine Ratio 15.9 (10.0-20.0); Blood Urea Nitrogen 10 mg/dL (9-23)
[2025-06-08 14:48] LABS: Chloride 108 mmol/L (98-107); Glucose 167 mg/dL (74-106); Potassium 3.4 mmol/L (3.5-5.1)
--- NOTE | 2025-06-08 15:33 | DVHSR ---
APPROVED REPORT Exam: Nuclear Stress Test Indication: chest pain BMI: 0 Medical History Medical History: HTN, DLD, DM, Breast Cancer s/p Bilat masectomy Stress Test Details Stress Test: Pharmacologic stress testing performed using 0.4 mg of regadenoson per 5 mL given IV ov er 10 seconds. HR Resting HR: 83 bpmMax Heart Rate (APMHR): 153.302242 bpm Max HR Achieved: 117 bpmTarget HR (85% APMHR): 130.156222 bpm % of APMHR: 76.47 Recovery HR: 95 bpm BP Resting BP: 144/85 mmHg Recovery BP: 138/71 mmHg ECG Resting ECG: BBB Clinical Reason for Termination: Completed protocol Stress ECG Conclusion no severe ischemia noted normal lvef NM EXAM: Myocardial Perfusion REST/STRESS Imaging Protocol: Rest Tc-99m/Stress Tc-99m 1 day Resting Data Rest SPECT myocardial perfusion imaging was performed in supine position 60 minutes following the int ravenous injection of 11.0 mCi of Tc-99m Sestamibi. Time of rest injection: 10:00 Date: 06/07/2025 Time of rest imagin:00 Date: 06/07/2025 Administration Route: IV Administration Site: Left Arm Pharmacologic Stress Pharmacologic stress test was performed by injecting Regadenoson 0.4 mg IV push followed by the intra venous injection of 29.5 mCi of Tc-99m Sestamibi. Time of stress injection: 12:55 Date: 06/07/2025 Time of stress imagin:55 Date: 06/07/2025 Administration Route: IV Administration Site: Left Arm Gated Stress SPECT was performed 60 minutes after stress injection. The images were gated to evaluate regional wall motion and calculate left ventricular ejection fracti on. Stress only was performed in the Supine position. Nuclear Conclusion Nuclear Findings: negative for ischemia no severe ischemia noted normal lvef
--- NOTE | 2025-06-08 16:25 | DVH ---
CT HEAD WITHOUT CONTRAST Indication: Hemmorage EXAM DATE: 06/08/2025 03:36 PM COMPARISON: CT HEAD WITHOUT CONTRAST on DOS: 06/07/25, MRI brain 06/07/2025 TECHNIQUE: CT of the head without intravenous contrast. RADIATION DOSE: CTDIvol: 51.64 mGy, DLP: 827.93 mGy*cm FINDINGS: There is stable region of intracranial hemorrhage/ hyperdensity within the left frontal lobe measurin g 1.7 x 1.4 cm. No significant perilesional edema. Previous MRI demonstrates T2 hypointense rim. The ventricles are midline and normal in size. Basilar cisterns are patent. Gonzáles-white differentiation is maintained. The paranasal sinuses and mastoids are well-pneumatized. Imaged portion of the orbits are unremarkabl e. IMPRESSION: Stable left frontal hyperdense region/intracranial hemorrhage measuring 1.7 x 1.4 cm, with differenti al considerations including intraparenchymal hemorrhage, cavernous malformation, less likely but not ruled out would be mass/neoplasm.
== END 2025-06-08 20:33 | disposition short-term general hospital (02) | DRG 64 ==
LOC: ER 13:19 → EDBD 13:19 → OVERFLOW 17:18 → TELE-EAST 18:26
PROVIDERS: ADMIT Internal Medicine; ATTEND Internal Medicine
DX: I62.9 Nontraumatic intracranial hemorrhage, unspecified (principal); I21.A1 Myocardial infarction type 2; E11.9 Type 2 diabetes mellitus without complications; I10 Essential (primary) hypertension; E78.5 Hyperlipidemia, unspecified; I45.10 Unspecified right bundle-branch block; Z88.6 Allergy status to analgesic agent; Z88.2 Allergy status to sulfonamides; Z90.13 Acquired absence of bilateral breasts and nipples; Z85.3 Personal history of malignant neoplasm of breast; Z79.899 Other long term (current) drug therapy
CPT/HCPCS: 36415; 70450; 70551; 71045; 78452; 80048; 80061; 82962; 83036; 83735; 84443; 84484; 85025; 93005; 93017; 93306; 97110; 97116; 97163; 97530; 99291; G0378; J1815